=== PATIENT | female | born 1950 | race African-American/Black ===

== ENCOUNTER 2016-10-11 20:38 | Emergency (ER) | payer OTHER ==
[2016-10-11 20:48] VITALS: BP 153/71; PULSE 74; TEMP 98.5; BMI 44.2
--- NOTE | 2016-10-11 22:01 | PDOC ---
History of Present Illness - General Chief Complaint: Bite Stated Complaint: PAIN Time Seen by Provider: 10/11/16 20:58 - History of Present Illness Initial Comments: 10/11/16 21:54 CHIEF COMPLAINT: leg pain HISTORY OF PRESENT ILLNESS: 66 yo F with hx of HTN, hypothyroidism, PVD presents to fast track with bilateral burning leg pain. Patient is concerned that she had a cat scratch on her left leg recently and finished an entire course of Augmentin but she is now feeling a "burning sensation to her legs." She states that she did not get a scratch on her right leg but she has the same pain on that leg as well. She denies any fever, chills, nausea, vomiting, diarrhea. No recent travel or sick contacts. PAST MEDICAL HISTORY: Denies past medical history FAMILY HISTORY: Denies SOCIAL HISTORY: Denies tobacco, alcohol, illicit drug use. SURGICAL HISTORY: Denies ALLERGIES: No known drug allergies REVIEW OF SYSTEMS General/Constitutional: Denies fever or chills. Denies weakness, weight change. HEENT: Denies change in vision. Denies ear pain or discharge. Denies sore throat. Cardiovascular: Denies chest pain or shortness of breath. Respiratory: Denies cough, wheezing, or hemoptysis. Gastrointestinal: Denies nausea, vomiting, diarrhea or constipation. Denies rectal bleeding. Genitourinary: Denies dysuria, frequency, or change in urination. Musculoskeletal: Bilateral lower leg pain. Skin and breasts: Denies rash or easy bruising. PHYSICAL EXAM General Appearance: Well-appearing, appropriately dressed. No apparent distress , no intoxication. HEENT: EOMI, PERRLA, normal ENT inspection, normal voice, TMs normal, pharynx normal. No conjunctival pallor. No photophobia, scleral icterus. Respiratory/Chest: Lungs CTAB. Cardiovascular: RRR. S1, S2. Vascular Pulses: Dorsalis-Pedis (R): 1+, Dorsalis-Pedis (L): 1+ Musculoskeletal/Extremities: Normal inspection. FROM of all extremities, normal capillary refill. Pelvis Stable. No CVA tenderness. No tenderness to extremities, pedal edema, swelling, erythema or deformity. Integumentary: Mottled, cool, shiny, crepe-y skin. No erythema or abscess to left leg. 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 Fully oriented, alert. Appropriate mood/affect. Motor strength 5/5. No appreciable EOM palsy, facial droop or sensory deficit. 10/11/16 22:20 Past History - Past Medical History Allergies/Adverse Reactions: Allergies Allergy/AdvReac Type Severity Reaction Status Date / Time No Known Allergies Allergy Verified 06/15/11 01:54 Home Medications: Ambulatory Orders Hydrochlorothiazide 25 mg PO ASDIR 10/11/16 Lisinopril [Prinivil -] 40 mg PO DAILY 10/11/16 Meloxicam [Mobic] 15 mg PO ASDIR 10/11/16 Methimazole [Tapazole -] 5 mg PO TID 10/11/16 Oxycodone HCl [Roxicodone] 5 mg PO TID PRN #15 tablet MDD 3 10/11/16 Zafirlukast 20 mg PO ASDIR 10/11/16 Asthma: Yes HTN: Yes Thyroid Disease: Yes (HYPO) - Surgical History Cholecystectomy: Yes - Psycho/Social/Smoking Cessation Hx Anxiety: No Suicidal Ideation: No Smoking Status: No Smoking History: Never smoked Number of Cigarettes Smoked Daily: 0 *Physical Exam - Vital Signs Last Vital Signs Temp Pulse Resp BP Pulse Ox 98.5 F 74 18 153/71 99 10/11/16 20:44 10/11/16 20:44 10/11/16 20:44 10/11/16 20:44 10/11/16 20:44 *DC/Admit/Observation/Transfer Diagnosis at time of Disposition: Peripheral vascular disease - Discharge Dispostion Disposition: HOME Condition at time of disposition: Stable Admit: No - Prescriptions Prescriptions: Oxycodone HCl [Roxicodone] 5 mg PO TID PRN #15 tablet MDD 3 PRN Reason: Pain - Patient Instructions Additional Instructions: Please take medication as prescribed - do NOT drive or operate machinery while taking this medication. Please follow up with your vascular doctor on the as planned. If you experience any shortness of breath, chest pain, palpitations , difficulty breathing, pain to the back of your legs, or any new or worsening symptoms, please return to the ER immediately.
[2016-10-11] MEDS ORDERED: KETOROLAC TROMETHAMINE 60 MG/2 ML VIAL IM ONE (22:10)
== END 2016-10-11 22:42 | disposition home or self-care (01) ==
LOC: JERFT 20:38
PROC: 3E0233Z Introduction of Anti-inflammatory into Muscle, Percutaneous Approach (ICD-10-PCS; principal; 2016-10-11)
DX: I73.89 Other specified peripheral vascular diseases (principal); I10 Essential (primary) hypertension; E03.9 Hypothyroidism, unspecified; J45.909 Unspecified asthma, uncomplicated
CPT/HCPCS: 96372; 99281-25